=== PATIENT | female | born 1995 | race Two or more races ===

== ENCOUNTER 2019-12-09 22:29 | Emergency (ER) | payer OTHER ==
[~2019-12-09] VITALS: Ht 154.9 cm; Wt 61.4 kg
[2019-12-09 22:44] VITALS: BP 130/84
[2019-12-09 22:49] LABS: BASOPHILS % (AUTO) 1.5 % (0.0-2.0); EOSINOPHILS % (AUTO) 0.4 % (1.0-6.0); HEMATOCRIT 43.8 % (36-46); HEMOGLOBIN 14.2 g/dL (12.0-16.0); LYMPHOCYTES # (AUTO) 2.7 K/uL (1.0-4.8); LYMPHOCYTES % (AUTO) 34.7 % (22.0-44.0); MEAN CORPUSCULAR HEMOGLOBIN 30.7 pg (26.0-34.0); MEAN CORPUSCULAR HGB CONC 32.4 G/dL (31.0-37.0); MEAN CORPUSCULAR VOLUME 95 fL (80-100); MONOCYTES # (AUTO) 0.7 K/uL (0.1-1.0); MONOCYTES % (AUTO) 9.5 % (2.0-9.0); NEUTROPHILS # (AUTO) 4.2 K/uL (1.8-7.7); NEUTROPHILS % (AUTO) 53.9 % (40.0-70.0); PLATELET COUNT (AUTO) 420 K/uL (150-450); RED BLOOD CELL COUNT(AUTO) 4.63 MIL/uL (4.00-5.20); RED CELL DISTRIBUTION WIDTH 13.5 % (11.5-14.5)
[2019-12-09 23:02] LABS: ANION GAP 9 mmol/L (8-16); CALCIUM, TOTAL 9.8 mg/dL (8.8-10.5); CARBON DIOXIDE 29 mmol/L (22-29); CHLORIDE 104 mmol/L (98-107); CREATININE 0.75 mg/dL (0.60-1.30); GLOMERULAR FILTR. RATE CALC > 60 mL/min (>60); GLUCOSE,RANDOM 119 mg/dL (70-110); POTASSIUM 3.7 mmol/L (3.5-5.1); SODIUM SERUM 142 mmol/L (136-145); UREA NITROGEN, BLOOD 14 mg/dL (7-18)
[2019-12-09 23:13] LABS: ALANINE AMINOTRANSFERASE 20 U/L (12-78); ALBUMIN 4.3 g/dL (3.4-5.0); ALKALINE PHOSPHATASE 82 U/L (46-116); ASPARTATE AMINOTRANSFERASE 14 U/L (15-37); BILIRUBIN,TOTAL 0.3 mg/dL (0.1-1.0); HCG,QUANTITATIVE 1 mIU/mL (0-6); TOTAL PROTEIN, SERUM 7.8 g/dL (6.4-8.2)
[2019-12-09] MEDS ORDERED: HALOPERIDOL 5 MG TABLET PO ONE (23:45)
== END 2019-12-10 00:23 | disposition home or self-care (01) ==
LOC: EMS 22:31
DX: F20.0 Paranoid schizophrenia (principal); F17.210 Nicotine dependence, cigarettes, uncomplicated; F32.9 Major depressive disorder, single episode, unspecified; F11.90 Opioid use, unspecified, uncomplicated
CPT/HCPCS: 36415; 80053; 84702; 85025; 99284; G0480

== ENCOUNTER 2019-12-21 06:10 | Emergency (ER) | payer OTHER ==
[~2019-12-21] VITALS: Ht 154.9 cm; Wt 58.2 kg
[2019-12-21 06:32] VITALS: BP 134/71
[2019-12-21 07:12] LABS: AMPHET/METH SCREEN,URINE POSITIVE (NEGATIVE); BARBITURATE SCREEN, URINE NEGATIVE (NEGATIVE); BENZODIAZEPINES SCREEN,URINE NEGATIVE (NEGATIVE); CANNABINOID SCREEN,URINE POSITIVE (NEGATIVE); COCAINE SCREEN,URINE NEGATIVE (NEGATIVE); METHADONE SCREEN, URINE NEGATIVE (NEGATIVE); OPIATE SCREEN,URINE NEGATIVE (NEGATIVE)
[2019-12-21 07:13] LABS: PHENCYCLIDINE SCREEN,URINE NEGATIVE (NEGATIVE)
[2019-12-21] MEDS ORDERED: BACITRACIN 0.9 GM PACKET OINTMENT TP ONE (08:33)
== END 2019-12-21 08:40 | disposition home or self-care (01) ==
LOC: EMS 06:10
DX: S00.81XA Abrasion of other part of head, initial encounter (principal); F17.210 Nicotine dependence, cigarettes, uncomplicated; F12.10 Cannabis abuse, uncomplicated; F15.10 Other stimulant abuse, uncomplicated; F32.9 Major depressive disorder, single episode, unspecified; X78.9XXA Intentional self-harm by unspecified sharp object, initial encounter; Y93.89 Activity, other specified; Y92.89 Other specified places as the place of occurrence of the external cause; Y99.8 Other external cause status
CPT/HCPCS: 99406

== ENCOUNTER 2022-06-18 23:58 | Emergency (ER) | payer OTHER ==
[~2022-06-18] VITALS: Ht 154.9 cm; Wt 75.0 kg
[2022-06-19 00:02] VITALS: BP 105/65
== END 2022-06-19 00:30 | disposition left against medical advice (07) ==
LOC: EMS 23:59
DX: Z53.21 Procedure and treatment not carried out due to patient leaving prior to being seen by health care provider (principal)

== ENCOUNTER 2022-07-02 16:52 | Emergency (ER) | payer OTHER ==
[~2022-07-02] VITALS: Ht 154.9 cm; Wt 72.7 kg
[2022-07-02] MEDS ORDERED: BACITRACIN 0.9 GM PACKET OINTMENT TP ONE (17:30)
[2022-07-02] MEDS ORDERED: LORazepam 2 MG/ML VIAL IM ONE (18:00)
[2022-07-02] MEDS ORDERED: DiphenhydrAMINE HCL 25 MG CAPSULE PO ONE (18:00)
[2022-07-02 18:07] LABS: APPEARANCE,URINE CLEAR (CLEAR); BILIRUBIN,URINE NEGATIVE (NEGATIVE); GLUCOSE, URINE (UA) NEGATIVE (NEGATIVE); KETONES,URINE TRACE mg/dL (NEGATIVE); LEUKOCYTE ESTERASE ,URINE NEGATIVE (NEGATIVE); NITRATE,URINE NEGATIVE (NEGATIVE); OCCULT BLOOD,URINE NEGATIVE (NEGATIVE); PH,URINE 5.5 (5.0-8.0); PROTEIN,URINE TRACE mg/dL (NEGATIVE); SPECIFIC GRAVITIY, URINE 1.035 (1.003-1.030); UROBILINOGEN,URINE <=1.0 mg/dL (<=1.0)
[2022-07-02 18:08] VITALS: BP 120/70
[2022-07-02 18:21] LABS: BASOPHILS % (AUTO) 0.8 % (0.0-2.0); EOSINOPHILS % (AUTO) 0.8 % (1.0-6.0); HEMATOCRIT 39.3 % (36-46); HEMOGLOBIN 13.3 g/dL (12.0-16.0); LYMPHOCYTES % (AUTO) 32.6 % (22.0-44.0); MEAN CORPUSCULAR HEMOGLOBIN 31.3 pg (26.0-34.0); MEAN CORPUSCULAR VOLUME 92 fL (80-100); MONOCYTES # (AUTO) 0.8 K/uL (0.1-1.0); MONOCYTES % (AUTO) 8.9 % (2.0-9.0); NEUTROPHILS # (AUTO) 5.3 K/uL (1.8-7.7); NEUTROPHILS % (AUTO) 56.9 % (40.0-70.0); PLATELET COUNT (AUTO) 402 K/uL (150-450); RED BLOOD CELL COUNT(AUTO) 4.26 MIL/uL (4.00-5.20); RED CELL DISTRIBUTION WIDTH 13.2 % (11.5-14.5)
[2022-07-02 18:28] LABS: ANION GAP 12 mmol/L (8-16); CALCIUM, TOTAL 9.4 mg/dL (8.8-10.5); CARBON DIOXIDE 21 mmol/L (22-29); CHLORIDE 107 mmol/L (98-107); CREATININE 0.86 mg/dL (0.60-1.30); GLUCOSE,RANDOM 130 mg/dL (70-110); POTASSIUM 3.8 mmol/L (3.5-5.1); SODIUM SERUM 140 mmol/L (136-145); UREA NITROGEN, BLOOD 18 mg/dL (7-18)
[2022-07-02 18:33] LABS: GLOMERULAR FILTR. RATE CALC > 60 mL/min (>60)
[2022-07-02] MEDS ORDERED: HYDR-4808 PO (18:37)
[2022-07-02] MEDS ORDERED: ACET-66 PO (18:39)
[2022-07-02] MEDS ORDERED: BACI28OI29 TP (18:39)
[2022-07-02 19:04] LABS: AMORPHOUS SEDIMENT,UR Many /LPF (None Seen); BACTERIA,URINE None Seen /HPF (None Seen); RBC,URINE None Seen /HPF (0-2); WBC,URINE None Seen /HPF (0-5)
[2022-07-02 19:06] LABS: SQUAMOUS EPITHELIAL CELL,UR Rare /LPF (None Seen)
== END 2022-07-02 19:53 | disposition left against medical advice (07) ==
LOC: EMS 16:55
DX: T23.211A Burn of second degree of right thumb (nail), initial encounter (principal); F20.9 Schizophrenia, unspecified; F41.9 Anxiety disorder, unspecified; F32.9 Major depressive disorder, single episode, unspecified; F14.10 Cocaine abuse, uncomplicated; Z88.6 Allergy status to analgesic agent; X11.8XXA Contact with other hot tap-water, initial encounter; Y93.89 Activity, other specified; Y92.89 Other specified places as the place of occurrence of the external cause; Y99.8 Other external cause status
CPT/HCPCS: 99283; 80048; 81001; 85025; 36415; 16000; 96372; 84703; J2060

== ENCOUNTER 2022-07-12 16:20 | Emergency (ER) | payer OTHER ==
[~2022-07-12] VITALS: Ht 154.9 cm; Wt 77.0 kg
[~2022-07-12 16:20] MED LIST: ACET-66 PO; BACI28OI29 TP; HYDR-4808 PO
[2022-07-12 16:24] VITALS: BP 112/67
[2022-07-12] MEDS ORDERED: ARIP5TAB37 PO (17:51)
== END 2022-07-12 18:04 | disposition home or self-care (01) ==
LOC: EMS 16:26
DX: F20.0 Paranoid schizophrenia (principal); F32.A Depression, unspecified; Z76.0 Encounter for issue of repeat prescription
CPT/HCPCS: 99281; Z7502